=== PATIENT | female | born 1935 | race Caucasian/White ===

== ENCOUNTER 2016-06-28 07:46 | Day surgery (SDC) | payer MEDICARE ==
[~2016-06-28 07:46] MED LIST: LACTATED RINGERS 1,000 ML IV SCH; LIDOCAINE 1% 20 ML VIAL (10MG/ML) FOR IV START INTRADERMA PRN
[2016-06-28 08:46] VITALS: TEMP 97.6
[2016-06-28] MEDS ORDERED: LIDOCAINE 1% INJ 10MG/ML (20 ML MDV) ONE (09:17)
[2016-06-28] MEDS ORDERED: PROPOFOL 10 MG/ML 20 ML VIAL IV ONE (09:17)
--- NOTE | 2016-06-28 09:44 | P.PCN ---
Date of Procedure: 06/28/16 Procedure(s) Performed: Brief history: Patient is a pleasant 81-year-old white female, scheduled for an elective upper endoscopy as well as colonoscopy as a part of evaluation of severe iron deficiency anemia. Recently she was noted to have a hemoglobin of 6.2 with iron indices consistent with iron deficiency anemia. She denies any GI symptoms. Procedure performed: Esophagogastroduodenoscopy with biopsy Colonoscopy with biopsy Preoperative diagnosis: Severe iron deficiency anemia Anesthesia: MAC Procedure: After informed consent was obtained from the patient was brought into the endoscopy unit and IV conscious sedation was administered by anesthesia under continuous monitoring. Initially upper endoscopy was done. The Olympus GF 160 video endoscope was inserted inserted into the mouth and esophagus intubated without any difficulty and was gradually advanced into the stomach and duodenum and carefully examined. The bulb and second part of the duodenum appeared normal. Biopsies were done from this area to rule out celiac disease. The scope was then withdrawn into the stomach adequately insufflated with air and upon careful examination the antrum and body, cardia and fundus appeared normal. The scope was then withdrawn into the esophagus. The GE junction was located at 40 cm to the incisors. It appeared regular with no erythema erosions or ulcerations. Rest of the esophagus appeared normal. Patient tolerated the procedure well. At this time the patient continued to remain sedation. Initial digital rectal examination was normal. Olympus CF 160 video colonoscope was then inserted into the rectum and gradually advanced to the cecum without any difficulty. Careful examination was performed as the scope was gradually being withdrawn. The prep was excellent. In the cecum there was an ulcerated 3-4 cm mass identified which was biopsied. The ascending colon, transverse colon, descending colon, sigmoid colon and rectum appeared normal. Retroflexion was performed in the rectum and grade 2 internal hemorrhoids were noted. The sigmoid diverticulosis seen. Patient tolerated the procedure well. Impression: 1. Upper endoscopy was essentially within normal limits with no evidence of peptic ulcer disease or esophagitis or angiodysplasia 2. Colonoscopy revealed ulcerated mass involving the cecum and scattered sigmoid diverticulosis. Recommendations: Findings of this examination were discussed with the patient as well as her family. She was up to follow with the biopsy results. At this time she will be scheduled for CT of the abdomen and pelvis and obtain surgical consultation.
[2016-06-28 09:49] VITALS: RESP 16
[2016-06-28 10:23] VITALS: BP 137/72; PULSE 66
--- NOTE | 2016-07-03 09:12 | CDI ---
Pt Name: Jovita Johns CONFIDENTIAL MR#: [id number] Adm Date: 06/28/2016 7:46:00 AM Printed:07/03/2016 Physician Documentation Request Page 1 of 1 ICD-10-CM Ready Physicians Documentation Request Patient: Jovita Johns EPI: [id number] Account: [id number] Payer: MEDICARE HMO Facility: [facility] Location: - Admit Date: 06/28/2016 7:46:00 AM Query Send By: Jane Coleman Phone #: Ext. Communication Date: 07/03/2016 9:07:00 AM Clarification Outpatient By submitting this query, we are merely seeking further clarification of documentation to accurately reflect all conditions that you are monitoring, evaluating, treating or that extend the hospitalization or utilize additional resources of care. Please utilize your independent clinical judgment when addressing the question(s) below. Dear Doctor Dori Muñoz, The patients Clinical Indicators include: see below Documentation Clarification OP In order to properly code and bill, clarification is needed regarding a sedation conflict on this account. Your Procedure note states "IV conscious sedation", yet the Anesthesia Record indicates GA/Unconscious Sedation. Which type of sedation was actually used? Please issue an addendum to your operative report. Thanks! PLEASE DOCUMENT ANY ADDITIONAL DIAGNOSES AND/OR SPECIFICITY IN THE PROGRESS NOTES AND/OR DISCHARGE SUMMARY. Agreed & documented Unable to determine/unknown Disagree with the above request Need to discuss MTDD
--- NOTE | 2016-07-07 12:07 | PCN ---
ADDENDUM TO PROCEDURE NOTE: General anesthesia utilized instead of IV conscious sedation.
== END 2016-06-28 10:44 | disposition home or self-care (01) ==
LOC: ORWHC2ENDO 07:46
PROVIDERS: ATTEND Internal Medicine Gastroenterology
DX: C18.0 Malignant neoplasm of cecum (principal); K57.30 Diverticulosis of large intestine without perforation or abscess without bleeding; K64.1 Second degree hemorrhoids; D50.9 Iron deficiency anemia, unspecified; I10 Essential (primary) hypertension; Z79.82 Long term (current) use of aspirin; Z79.899 Other long term (current) drug therapy
CPT/HCPCS: 88305; 45380; 43239; J2001; J2704

== ENCOUNTER → 2016-06-30 | Outpatient (CLI) | payer MEDICARE ==
[2016-06-30 14:59] LABS: Blood Urea Nitrogen 15 mg/dL (7-17); Non-African American GFR(MDRD) >60 (>60 ml/min/1.73 sqM)
--- NOTE | 2016-06-30 16:20 | CT ---
EXAMINATION TYPE: CT abdomen pelvis w con DATE OF EXAM: 06/30/2016 4:02 PM COMPARISON: NONE HISTORY: recent diagnosis of colon cancer. History of breast cancer CT DLP: 837 mGycm Automated exposure control for dose reduction was used. TECHNIQUE: Helical acquisition of images was performed from the lung bases through the pelvis. CONTRAST: Performed with Oral Contrast and with IV Contrast, patient injected with 100 mL of Omnipaque 300. FINDINGS: LUNG BASES: Patient shows postmastectomy change. There is a granuloma present in the left lower lobe, calcified nodules are subcentimeter in size in the left lower lobe, parenchymal bands are present wi thin the lung bases. LIVER/GB: There is a large mass in the posterior right lobe of the liver measuring approximately 9.4 cm x 9.7 cm x 6.5 cm in size. Smaller hypodense mass is present more medially and inferiorly measurin g 3.3 cm in greatest dimension. The mass more anteriorly in the right lobe measures approximately 4.5 cm in greatest dimension, these masses show nodular tyler with central low attenuation. PANCREAS: No significant abnormality is seen. SPLEEN: No significant abnormality is seen. ADRENALS: No significant abnormality is seen. KIDNEYS: Cortical cyst associated with the midpole of the left kidney was sterilely measures 4 cm. Co rtical cyst in the central portion of the right kidney upper aspect measures 19 mm. Duplicated collec ting system present on the right. RETROPERITONEAL ADENOPATHY: None visualized REPRODUCTIVE ORGANS: Not seen URINARY BLADDER: No significant abnormality is seen. PELVIC ADENOPATHY: Right inguinal adenopathy is suspected OSSEOUS STRUCTURES: No significant abnormality is seen. BOWEL: Abnormal soft tissue is associated with the cecum which may be related to patient's known car cinoma, the mass is irregularly shaped and measures approximately 4.2 cm in greatest dimension. OTHER: Aorta shows normal caliber. Soft tissue at the pelvic outlet is indeterminate, consider pelvic physical examination. IMPRESSION: FINDINGS COMPATIBLE WITH PATIENT'S HISTORY OF COLON CARCINOMA WITH PROBABLE METASTATIC CHANGE TO THE LIVER, POSSIBLE RIGHT INGUINAL REGION. Additional findings above.
== END | disposition home or self-care (01) ==
LOC: RADCTMAIN 13:47
PROVIDERS: ATTEND Internal Medicine Gastroenterology
DX: C18.9 Malignant neoplasm of colon, unspecified (principal)
CPT/HCPCS: 82565; 84520; 74177; 36415; Q9967

== ENCOUNTER 2016-07-11 07:28 | Day surgery (SDC) | payer MEDICARE ==
[2016-07-11 08:59] VITALS: RESP 14; TEMP 98
[2016-07-11 09:04] LABS: INR 1.2 (<1.1); Prothrombin Time 11.6 sec (9.0-12.0)
[2016-07-11 09:07] LABS: Anisocytosis Marked; Basophils # (A) 0.1 k/uL (0-0.2); Basophils % (A) 1 %; CH 24.8; CHCM 27.8; Eosinophils # (A) 0.2 k/uL (0-0.7); Eosinophils % (A) 4 %; HCT 33.7 % (34.0-46.0); HDW 4.11; HGB 9.8 gm/dL (11.4-16.0); Hypochromasia Marked; Luc # (Auto) 0.14; Luc % (Auto) 2; Lymphocytes # (A) 0.7 k/uL (1.0-4.8); Lymphocytes % (A) 11 %; MCH 25.5 pg (25.0-35.0); MCHC 29.1 g/dL (31.0-37.0); MCV 87.6 fL (80.0-100.0); Macrocytosis Slight; Mean Platelet Volume 6.8; Microcytosis Slight; Monocytes # (A) 0.7 k/uL (0-1.0); Monocytes % (A) 11 %; Neutrophils # (A) 4.6 k/uL (1.3-7.7); Neutrophils % (A) 72 %; Poikilocytosis Moderate; RBC 3.85 m/uL (3.80-5.40); WBC 6.4 k/uL (3.8-10.6); WBC (Perox) 6.24
[2016-07-11 09:08] LABS: RDW 26.8 % (11.5-15.5)
[2016-07-11 09:54] VITALS: PULSE 76
--- NOTE | 2016-07-11 10:21 | US ---
EXAMINATION TYPE: US biopsy liver DATE OF EXAM: 07/11/2016 10:08 AM HISTORY: Liver masses, mass. FINDINGS: Maximal barrier technique was utilized. The skin overlying a suitable path to the patient' s mass was localized with ultrasound and the overlying skin prepped and draped. Ultrasound was utili zed with sterile technique. Lidocaine was used for local anesthesia. A skin reza was made with a sc alpel. An 18-gauge needle was advanced under direct ultrasound guidance and core specimen obtained o f the mass within the right lobe of the liver. Specimen submitted in formalin to Pathology. Followi ng the procedure, hemostasis achieved and the patient is discharged in stable condition without compl ication. Impression: status POST ULTRASOUND GUIDED CORE BIOPSY OF liver MASS, PATHOLOGY IS PENDING. THIS PROC EDURE IS PERFORMED BY THE UNDERSIGNED.
[2016-07-11 13:30] VITALS: BP 145/62
== END 2016-07-11 14:00 | disposition home or self-care (01) ==
LOC: RADPROMAIN 07:28
PROVIDERS: ATTEND Internal Medicine Hematology & Oncology
DX: C22.7 Other specified carcinomas of liver (principal); C18.9 Malignant neoplasm of colon, unspecified; C50.919 Malignant neoplasm of unspecified site of unspecified female breast
CPT/HCPCS: 47000; 76942; 85025; 85610; 88307; 88341; 88342

== ENCOUNTER → 2016-08-11 | Outpatient (CLI) | payer MEDICARE ==
--- NOTE | 2016-08-11 11:25 | US ---
EXAMINATION TYPE: US venous doppler duplex LE DATE OF EXAM: 08/11/2016 11:07 AM COMPARISON: NONE CLINICAL HISTORY: Pain M79.662 And Swelling R22.42. SIDE PERFORMED: bilateral TECHNIQUE: The lower extremity deep venous system is examined utilizing real time linear array sonog khloe with graded compression, doppler sonography and color-flow sonography. VESSELS IMAGED: External Iliac Vein (EIV) Common Femoral Vein Deep Femoral Vein Greater Saphenous Vein * Femoral Vein Popliteal Vein Small Saphenous Vein * Proximal Calf Veins (* superficial vessels) Right Leg: Negative for DVT Left Leg: Negative for DVT Grayscale, color doppler, spectral doppler imaging performed of the deep veins of the lower extremiti es. There is normal flow, compressibility, vascular waveforms bilaterally. IMPRESSION: No ultrasound evidence for acute DVT in either lower extremity.
== END | disposition home or self-care (01) ==
LOC: RADUSWWP 10:22
PROVIDERS: ATTEND Internal Medicine Hematology & Oncology
DX: M79.661 Pain in right lower leg (principal); M79.662 Pain in left lower leg; R22.43 Localized swelling, mass and lump, lower limb, bilateral
CPT/HCPCS: 93970

== ENCOUNTER 2016-10-13 14:42 | Emergency (ER) | payer MEDICARE ==
--- NOTE | 2016-10-13 15:22 | ED ---
General Adult HPI - General Chief complaint: Allergic Reaction Stated complaint: Chemo Reaction Time Seen by Provider: 10/13/16 15:00 Source: patient, RN notes reviewed Mode of arrival: wheelchair Limitations: no limitations - History of Present Illness Initial comments: This is an 81-year-old female has a history of colon cancer. Patient has been getting chemotherapy and she went to the chemotherapy at 2:00 today feeling fine however at the end of the chemotherapy administration she started having some slurred speech per the daughter and then her fine motor skills with both hands appeared to be slightly off and she was unable to grasp the blanket pulled up to her neck and she is unable to grab a glass of water. Patient seems to think it was occurring with both hands. Patient also took a sip of water and was choking on it. Patient states she feels drugged currently. Patient denies headache patient denies any lightheadedness dizziness or near syncopal episode. Patient denies any chest pain palpitations difficulty breathing or shortness of breath. Patient denies any abdominal pain patient denies nausea vomiting diarrhea. Patient states she's had this chemotherapy drug in the past and has had no similar reaction. Patient states she did take Lomotil this morning because she had diarrhea and has had diarrhea recently when she has been taking chemo. - Related Data Home Medications Medication Instructions Recorded Confirmed Aspirin 81 mg PO HS 06/23/16 10/13/16 Metoprolol Succinate (ER) [Toprol 25 mg PO DAILY 06/23/16 10/13/16 XL] amLODIPine [Norvasc] 5 mg PO DAILY 06/23/16 10/13/16 Multivitamins, Thera [Multivitamin 1 tab PO DAILY 07/06/16 10/13/16 (formulary)] Diphenox-Atrop 2.5-0.025 mg 1 tab PO Q4H PRN 10/13/16 10/13/16 [Lomotil] Allergies Allergy/AdvReac Type Severity Reaction Status Date / Time No Known Allergies Allergy Verified 10/13/16 15:08 Review of Systems ROS Statement: Those systems with pertinent positive or pertinent negative responses have been documented in the HPI. ROS Other: All systems not noted in ROS Statement are negative. Past Medical History Past Medical History: Blood Disorder, Cancer, Hypertension Additional Past Medical History / Comment(s): LT BREAST; Blood disorde, Anemia History of Any Multi-Drug Resistant Organisms: None Reported Past Surgical History: Hysterectomy Additional Past Surgical History / Comment(s): LT MASTECTOMY, colonoscopy, Past Anesthesia/Blood Transfusion Reactions: No Reported Reaction Additional Past Anesthesia/Blood Transfusion Reaction / Comment(s): blood transfusion 06/30 Past Psychological History: No Psychological Hx Reported Smoking Status: Never smoker Past Alcohol Use History: None Reported Past Drug Use History: None Reported - Past Family History Father Family Medical History: Blood Disorder General Exam - General Exam Comments Initial Comments: GENERAL: Patient is well-developed and well-nourished. Patient is nontoxic and well- hydrated and is in mild distress. ENT: Neck is soft and supple. No significant lymphadenopathy is noted. Oropharynx is clear. Moist mucous membranes. Neck has full range of motion without eliciting any pain. . EYES: The sclera were anicteric and conjunctiva were pink and moist. Extraocular movements were intact and pupils were equal round and reactive to light. Eyelids were unremarkable. PULMONARY: Unlabored respirations. Good breath sounds bilaterally. No audible rales rhonchi or wheezing was noted. CARDIOVASCULAR: There is a regular rate and rhythm without any murmurs gallops or rubs. ABDOMEN: Soft and nontender with normal bowel sounds. No palpable organomegaly was noted. There is no palpable pulsatile mass. SKIN: Skin is clear with no lesions or rashes and otherwise unremarkable. NEUROLOGIC: Patient is alert and oriented x3. Cranial nerves II through XII are grossly intact. Currently patient speech seems normal. Patient's fine motor movement with both hands seems to be slightly off. She is unable to grasp her glasses accurately with either hand. MUSCULOSKELETAL: Normal extremities with adequate strength and full range of motion. No lower extremity swelling or edema. No calf tenderness. LYMPHATICS: No significant lymphadenopathy is noted PSYCHIATRIC: Normal psychiatric evaluation. Normal interpersonal interactions appears functionally intact in deals appropriately with others. No signs of depression. No signs of anxiety. Limitations: no limitations Course Vital Signs 10/13/16 10/13/16 10/13/16 14:46 15:00 15:15 Temperature 97.5 F L 98.0 F 98.2 F Pulse Rate 102 H 88 90 Respiratory 20 18 18 Rate Blood Pressure 153/68 123/60 126/58 O2 Sat by Pulse 99 96 97 Oximetry 10/13/16 10/13/16 10/13/16 15:30 15:45 16:00 Temperature 98.5 F 98.5 F 98.6 F Pulse Rate 85 92 108 H Respiratory 18 18 18 Rate Blood Pressure 122/56 157/71 152/71 O2 Sat by Pulse 95 95 95 Oximetry 10/13/16 10/13/16 10/13/16 16:15 16:30 16:55 Temperature 98.7 F 98.2 F 98.2 F Pulse Rate 95 92 97 Respiratory 18 18 18 Rate Blood Pressure 116/52 146/64 127/61 O2 Sat by Pulse 97 95 96 Oximetry 10/13/16 10/13/16 18:00 18:32 Temperature 98.4 F Pulse Rate 86 80 Respiratory 18 16 Rate Blood Pressure 150/65 127/59 O2 Sat by Pulse 97 97 Oximetry Medical Decision Making - Medical Decision Making EKG shows normal sinus rhythm at 90 bpm TN interval 176 dresses under 10 Q-T intervals 46 QTC is 496. Patient's EKG is compared to an old EKG no significant changes are noted. Patient was hypokalemic psychiatric the patient 40 mEq of Nel Dur and 10 mg of KCl IV. I went and reexamined the patient her symptoms have resolved and she was asking to go home. - Lab Data Result diagrams: 10/13/16 15:08 10/13/16 15:08 Lab Results 10/13/16 10/13/16 10/13/16 Range/Units 15:08 15:08 15:08 WBC 5.2 (3.8-10.6) k/uL RBC 3.28 L (3.80-5.40) m/uL Hgb 11.5 (11.4-16.0) gm/dL Hct 34.0 (34.0-46.0) % MCV 103.6 H (80.0-100.0) fL MCH 35.0 (25.0-35.0) pg MCHC 33.8 (31.0-37.0) g/dL RDW 19.5 H (11.5-15.5) % Plt Count 397 (150-450) k/uL Neutrophils % 93 % Lymphocytes % 5 % Monocytes % 1 % Eosinophils % 0 % Basophils % 0 % Neutrophils # 4.9 (1.3-7.7) k/uL Lymphocytes # 0.3 L (1.0-4.8) k/uL Monocytes # 0.0 (0-1.0) k/uL Eosinophils # 0.0 (0-0.7) k/uL Basophils # 0.0 (0-0.2) k/uL Anisocytosis Slight Macrocytosis Moderate PT (9.0-12.0) sec INR (<1.1) APTT (22.0-30.0) sec Sodium 143 (137-145) mmol/L Potassium 2.5 L* (3.5-5.1) mmol/L Chloride 104 (98-107) mmol/L Carbon Dioxide 26 (22-30) mmol/L Anion Gap 13 mmol/L BUN 17 (7-17) mg/dL Creatinine 0.42 L (0.52-1.04) mg/dL Est GFR (MDRD) Af Amer >60 (>60 ml/min/1.73 sqM) Est GFR (MDRD) Non-Af >60 (>60 ml/min/1.73 sqM) Glucose 149 H (74-99) mg/dL Calcium 8.1 L (8.4-10.2) mg/dL Total Bilirubin 1.1 (0.2-1.3) mg/dL AST 49 H (14-36) U/L ALT 54 H (9-52) U/L Alkaline Phosphatase 251 H (38-126) U/L Total Creatine Kinase 97 (30-135) U/L CK-MB (CK-2) 1.2 (0.0-2.4) ng/mL CK-MB (CK-2) Rel Index 1.2 Troponin I 0.033 (0.000-0.034) ng/mL Total Protein 6.6 (6.3-8.2) g/dL Albumin 3.2 L (3.5-5.0) g/dL Urine Color Urine Appearance (Clear) Urine pH (5.0-8.0) Ur Specific [place] (1.001-1.035) Urine Protein (Negative) Urine Glucose (UA) (Negative) Urine Ketones (Negative) Urine Blood (Negative) Urine Nitrite (Negative) Urine Bilirubin (Negative) Urine Urobilinogen (<2.0) mg/dL Ur Leukocyte Esterase (Negative) Urine WBC (0-5) /hpf 10/13/16 10/13/16 Range/Units 15:08 16:30 WBC (3.8-10.6) k/uL RBC (3.80-5.40) m/uL Hgb (11.4-16.0) gm/dL Hct (34.0-46.0) % MCV (80.0-100.0) fL MCH (25.0-35.0) pg MCHC (31.0-37.0) g/dL RDW (11.5-15.5) % Plt Count (150-450) k/uL Neutrophils % % Lymphocytes % % Monocytes % % Eosinophils % % Basophils % % Neutrophils # (1.3-7.7) k/uL Lymphocytes # (1.0-4.8) k/uL Monocytes # (0-1.0) k/uL Eosinophils # (0-0.7) k/uL Basophils # (0-0.2) k/uL Anisocytosis Macrocytosis PT 13.4 H (9.0-12.0) sec INR 1.4 (<1.1) APTT 24.7 (22.0-30.0) sec Sodium (137-145) mmol/L Potassium (3.5-5.1) mmol/L Chloride (98-107) mmol/L Carbon Dioxide (22-30) mmol/L Anion Gap mmol/L BUN (7-17) mg/dL Creatinine (0.52-1.04) mg/dL Est GFR (MDRD) Af Amer (>60 ml/min/1.73 sqM) Est GFR (MDRD) Non-Af (>60 ml/min/1.73 sqM) Glucose (74-99) mg/dL Calcium (8.4-10.2) mg/dL Total Bilirubin (0.2-1.3) mg/dL AST (14-36) U/L ALT (9-52) U/L Alkaline Phosphatase (38-126) U/L Total Creatine Kinase (30-135) U/L CK-MB (CK-2) (0.0-2.4) ng/mL CK-MB (CK-2) Rel Index Troponin I (0.000-0.034) ng/mL Total Protein (6.3-8.2) g/dL Albumin (3.5-5.0) g/dL Urine Color Colorless Urine Appearance Clear (Clear) Urine pH 5.5 (5.0-8.0) Ur Specific [place] 1.003 (1.001-1.035) Urine Protein Negative (Negative) Urine Glucose (UA) Negative (Negative) Urine Ketones Negative (Negative) Urine Blood Trace H (Negative) Urine Nitrite Negative (Negative) Urine Bilirubin Negative (Negative) Urine Urobilinogen <2.0 (<2.0) mg/dL Ur Leukocyte Esterase Negative (Negative) Urine WBC <1 (0-5) /hpf Disposition Clinical Impression: Adverse reaction to drug, Hypokalemia Disposition: HOME SELF-CARE Condition: Good Instructions: Adverse Drug Reaction (ED), Hypokalemia (ED) Referrals: None,Stated [REFERRING] - 1-2 days Time of Disposition: 18:39
[2016-10-13 15:41] LABS: Anisocytosis Slight; Basophils % (A) 0 %; CH 35.2; CHCM 34.1; Eosinophils % (A) 0 %; HDW 2.97; HGB 11.5 gm/dL (11.4-16.0); Luc # (Auto) 0.05; Luc % (Auto) 1; Lymphocytes # (A) 0.3 k/uL (1.0-4.8); Lymphocytes % (A) 5 %; MCHC 33.8 g/dL (31.0-37.0); MCV 103.6 fL (80.0-100.0); Macrocytosis Moderate; Mean Platelet Volume 7.3; Monocytes % (A) 1 %; Neutrophils # (A) 4.9 k/uL (1.3-7.7); Neutrophils % (A) 93 %; RBC 3.28 m/uL (3.80-5.40); RDW 19.5 % (11.5-15.5); WBC 5.2 k/uL (3.8-10.6); WBC (Perox) 5.23
--- NOTE | 2016-10-13 15:48 | CT ---
EXAMINATION TYPE: CT brain wo con for TPA DATE OF EXAM: 10/13/2016 COMPARISON: NONE INDICATION: Coldness to right arm after chemo treatment today. Hx of colon CA. DLP: 1052 mGycm, Automated exposure control for dose reduction was used. CONTRAST: None CT of the brain is performed utilizing 3 mm thick sections through the posterior fossa and 3 mm thick sections through the remaining calvarium. Study is performed within 24 hours of arrival to the hosp ital. No abnormal hyperdensity is present to suggest an acute intracranial hemorrhage. No mass lesion is evident. No acute infarcts are evident. Ventricles and sulci are mildly prominent for the patient age. Paranasal sinuses and mastoid air cells within the [id number] are clear. IMPRESSIONS: 1. Mild age-related atrophy. 2. No acute intracranial process.
[2016-10-13 15:50] LABS: INR 1.4 (<1.1); Partial Thromboplastin Time 24.7 sec (22.0-30.0); Prothrombin Time 13.4 sec (9.0-12.0)
--- NOTE | 2016-10-13 15:54 | XR ---
EXAMINATION TYPE: XR chest 2V DATE OF EXAM: 10/13/2016 COMPARISON: NONE HISTORY: Shortness of breath TECHNIQUE: Frontal and lateral views of the chest are obtained. FINDINGS: Scattered senescent parenchymal changes noted. Hyperinflation compatible with COPD. No evidence for infiltrate. No evidence for atelectasis. Heart size is stable. Mediastinal structures are stable and grossly unremarkable. No evidence for hilar prominence. Degenerative changes dorsal spine. IMPRESSION: 1. No evidence for acute pulmonary disease.
[2016-10-13 15:57] LABS: ALT 54 U/L (9-52); AST 49 U/L (14-36); Alkaline Phosphatase 251 U/L (38-126); Anion Gap 13 mmol/L; Blood Urea Nitrogen 17 mg/dL (7-17); Calcium 8.1 mg/dL (8.4-10.2); Carbon Dioxide 26 mmol/L (22-30); Chloride 104 mmol/L (98-107); Glucose 149 mg/dL (74-99); Non-African American GFR(MDRD) >60 (>60 ml/min/1.73 sqM); Sodium 143 mmol/L (137-145); Total Bilirubin 1.1 mg/dL (0.2-1.3); Total Protein 6.6 g/dL (6.3-8.2)
[2016-10-13 15:59] LABS: Potassium 2.5 mmol/L (3.5-5.1)
[2016-10-13] MEDS ORDERED: POTASSIUM CHLORIDE ER 20 MEQ TAB.ER PO STA (16:07)
[2016-10-13 16:17] LABS: Creatine Kinase MB 1.2 ng/mL (0.0-2.4); Troponin I 0.033 ng/mL (0.000-0.034)
[2016-10-13 16:52] LABS: Appearance,Urine Clear (Clear); Bilirubin,Urine Negative (Negative); Glucose,Urine (UA) Negative (Negative); Ketones,Urine Negative (Negative); Leukocyte Esterase,Urine Negative (Negative); Nitrite,Urine Negative (Negative); PH, Urine 5.5 (5.0-8.0); Particle Count 341; Protein,Urine Negative (Negative); Specific Gravity,Urine 1.003 (1.001-1.035); UA Billing (MACRO vs. MICRO) MICRO; Urobilinogen,Urine <2.0 mg/dL (<2.0); WBC,Urine <1 /hpf (0-5)
[2016-10-13] MEDS ORDERED: POTASSIUM CHLORIDE 10 MEQ, LIDOCAINE 2% INJ 10 MG in SODIUM CHLORIDE 0.9% 100 ML IVPB SCH (17:00)
[2016-10-13 18:06] VITALS: TEMP 98.4
[2016-10-13 18:33] VITALS: BP 127/59; PULSE 80; RESP 16
== END 2016-10-13 18:52 | disposition home or self-care (01) ==
LOC: EC 14:42
DX: R47.81 Slurred speech (principal); R19.7 Diarrhea, unspecified; T45.1X5A Adverse effect of antineoplastic and immunosuppressive drugs, initial encounter; E87.6 Hypokalemia; I10 Essential (primary) hypertension; Z79.82 Long term (current) use of aspirin; Z79.899 Other long term (current) drug therapy; Z85.038 Personal history of other malignant neoplasm of large intestine; Z90.710 Acquired absence of both cervix and uterus; Z90.12 Acquired absence of left breast and nipple
CPT/HCPCS: 36415; 93005; 80053; 82550; 82553; 84484; 85025; 85610; 85730; 81001; 71020; 70450; 99284; 96365; J2001; J3480

== ENCOUNTER → 2016-11-15 | Outpatient (CLI) | payer MEDICARE ==
[2016-11-15 11:52] LABS: Blood Urea Nitrogen 25 mg/dL (7-17); Non-African American GFR(MDRD) >60 (>60 ml/min/1.73 sqM)
--- NOTE | 2016-11-15 13:41 | CT ---
EXAMINATION TYPE: CT ChestAbdPelvis w con DATE OF EXAM: 11/15/2016 COMPARISON: 06/30/2016 HISTORY: 81-year-old female follow up to colon CA TECHNIQUE: Contiguous axial scanning of the chest, abdomen, and pelvis performed with IV Contrast, pa tient injected with 100 mL of Omnipaque 300. Delayed images through the kidneys were obtained. Siegel l/sagittal reconstructions performed. CT DLP: 979 mGycm Automated exposure control for dose reduction was used. FINDINGS: CHEST: Tiny subcentimeter hypodense nodularity within the thyroid gland. Heart is normal size without pericardial effusion. Mild coronary vessel calcifications are present in remarkable for coronary artery disease. Moderate atherosclerotic calcifications throughout the thoracic aorta without aneurysm. There is conv entional origin vessel branching anatomy. Surgical clips seen within the left axilla with prior left mastectomy. No thoracic lymphadenopathy by CT size criteria. A few scattered calcified granulomas are present. Biapical pleural-parenchymal scarring. Tiny 3 mm left upper lobe pulmonary nodule axial image 21 A 1.9 cm masslike area of consolidation in the superior segment left lower lobe. 4 mm right middle lobe pulmonary nodule axial image 35. No consolidation or pleural effusion. ABDOMEN: Large lobulated hypervascular masses within the right liver lobe should be greater degree of central hypoattenuation, largest measuring 8.4 cm versus 9.6 cm, suggesting some posttreatment change. Portal vein is patent. No biliary ductal dilatation. Limitation in assessment of the abdomen due to patient breathing motion artifact. The gallbladder, adrenal glands, spleen, and atrophic pancreas show no gross abnormality. Scattered cysts within both kidneys, largest measuring 4.2 cm on the left and 1.9 cm on the right. No dilated small bowel, free fluid, or free air. Moderate atherosclerotic calcifications within the a bdominal aorta and iliac arteries. Oral contrast has not progressed to the colon. There is moderate stool within the right hemicolon. Pr eviously described cecal abnormality is not well delineated due to these limitations. Mild circumfere ntial wall thickening of the mid to distal sigmoid and rectum to be due to underdistention. No mesenteric or retroperitoneal lymphadenopathy seen. Slight diffuse anasarca type change with straining edema in the subcutaneous fat and intra-abdominal fat. Pelvis: Bladder distended. Uterus not visualized, likely surgically absent. No abnormal fluid collection in t he pelvis. Mild circumferential rectal wall thickening possibly nondistention. Redemonstrated dilated tubular structures within the right inguinal region suspected to be on a vascular basis with venous ectasia. Bones: Degenerative changes within the lumbar spine. No osseous destructive process. IMPRESSION: 1. PREVIOUSLY DESCRIBED CECAL ABNORMALITY IS NOT WELL DEPICTED CONTRAST HAS NOT MADE ITS WAY TO TH E COLON AND THERE IS MODERATE STOOL ON THE RIGHT SIDE. 2. LARGE HYPOVASCULAR RIGHT LIVER LOBE MASSES. THESE ARE NOW LOWER DENSITY AND SLIGHTLY SMALLER WITH THE LARGEST MEASURING 8.4 CM VERSUS 9.6 CM, PREVIOUSLY. FINDINGS SUGGEST PARTIAL TREATMENT RESPONSE. 3. APPROXIMATELY 3 PULMONARY NODULES, LARGEST MEASURING 1.9 CM. GIVEN THE PRESENCE OF PRIOR GRANULOMA TOUS DISEASE, THESE ARE NONSPECIFIC. FOLLOW-UP RECOMMENDED METASTATIC DISEASE IS NOT EXCLUDED AT T HIS TIME. 4. MILD CIRCUMFERENTIAL WALL THICKENING OF THE SIGMOID COLON AND RECTUM COULD RELATE TO UNDERDISTENTI ON OR MILD COLITIS. CLINICALLY CORRELATE.
== END | disposition home or self-care (01) ==
LOC: RADCTMAIN 11:12
PROVIDERS: ATTEND Internal Medicine Hematology & Oncology
DX: C18.0 Malignant neoplasm of cecum (principal); R16.0 Hepatomegaly, not elsewhere classified; R91.8 Other nonspecific abnormal finding of lung field; K63.89 Other specified diseases of intestine; K62.89 Other specified diseases of anus and rectum
CPT/HCPCS: 82565; 84520; 71260; 74177; 36415; Q9967

== ENCOUNTER → 2017-02-23 | Outpatient (CLI) | payer MEDICARE ==
[2017-02-23 10:03] LABS: Blood Urea Nitrogen 24 mg/dL (7-17); Non-African American GFR(MDRD) >60 (>60 ml/min/1.73 sqM)
--- NOTE | 2017-02-23 11:38 | CT ---
EXAMINATION TYPE: CT ChestAbdPelvis w con DATE OF EXAM: 02/23/2017 COMPARISON: 11/15/2016 HISTORY: Colon and Breast CA CT DLP: 386.7 mGycm. Automated Exposure Control for Dose Reduction was Utilized. CONTRAST: CT scan of the thorax, abdomen and pelvis is performed with IV Contrast, patient injected with 100 mL of Omnipaque 300. FINDINGS: LUNGS: There is unchanged size and morphology of the superior segment left lower lobe 1.9 cm masslike consolidation with the subsegmental bronchus through this mass. 3 mm left upper lobe pulmonary nodul e is also unchanged from the prior. 2 mm right upper lobe pulmonary nodule is also stable on series 4 image 22. The 4 mm right middle lobe pulmonary nodule seen on the prior exam is also stable. Again a few subcentimeter scattered calcified benign granulomas are seen as well as biapical pleural-parench ymal scarring. MEDIASTINUM: There are no greater than 1 cm hilar or mediastinal lymph nodes. Prominent right hilar l ymph node measures 8 mm in short axis. No pericardial effusion is seen. OTHER: Unchanged heterogeneity of the thyroid gland enhancement without greater than 1 cm nodule. Lef t mastectomy and axillary node dissection surgical clips on the left are present. LIVER/GB: Although the largest hepatic lesion measures similar to the prior exam with measurement of 8.1 x 5.8 cm and previously measuring 8.4 cm involving segment 7 and 8, there are multiple new hepati c metastatic masses in comparison to the prior exam and increase in size of the mass in segment 6 pre viously measuring approximately 2.9 cm and now measuring 6.0 x 5.8 cm. New masses within segment IVb and segment 3 measuring up to 1.8 cm. Gallbladder is unremarkable. PANCREAS: No significant abnormality is seen. SPLEEN: No significant abnormality is seen. ADRENALS: No significant abnormality is seen. KIDNEYS: Simple appearing bilateral renal cysts are similar to the prior measuring up to 4.2 cm in th e left superior pole emanating posteriorly. BOWEL: No obstruction or bowel wall thickening. Stool throughout the colon limits evaluation for mass es. Rectal wall thickening is likely due to incomplete distention. GENITAL ORGANS: Uterus is either severely atrophied or surgically absent. LYMPH NODES: No greater than 1cm abdominal or pelvic lymph nodes are appreciated. OSSEOUS STRUCTURES: Multilevel degenerative disc disease is seen of the cervicothoracic and thoracolu mbar spine. No suspicious osseous lesions. OTHER: Tubular structures appearing contiguous with the femoral veins again are favored to represent venous varicosities rather than lymphadenopathy. Body wall edema is resolved in the interim. IMPRESSION: 1. Progression of metastatic disease within the liver with enlargement of the metastatic lesions and few new metastatic lesions. 2. Stable 1.9 cm and 3 mm pulmonary nodules with the larger favored to represent metastatic disease a lthough granulomatous disease is possible. 3. Mild circumferential wall thickening of the rectum is again present and thought to relate to incom plete distention 4. No adenopathy within the chest, abdomen, or pelvis. 5. Resolution of the previously seen body wall edema..
== END | disposition home or self-care (01) ==
LOC: RADCTMAIN 09:11
PROVIDERS: ATTEND Internal Medicine Hematology & Oncology
DX: C78.7 Secondary malignant neoplasm of liver and intrahepatic bile duct (principal); C18.0 Malignant neoplasm of cecum; R91.8 Other nonspecific abnormal finding of lung field; K62.89 Other specified diseases of anus and rectum
CPT/HCPCS: 82565; 84520; 71260; 74177; 36415; Q9967

== ENCOUNTER → 2017-05-15 | Outpatient (CLI) | payer MEDICARE ==
[2017-05-15 11:10] LABS: Blood Urea Nitrogen 21 mg/dL (7-17)
--- NOTE | 2017-05-15 13:24 | CT ---
EXAMINATION TYPE: CT ChestAbdPelvis w con DATE OF EXAM: 05/15/2017 COMPARISON: 02/23/2017 and 11/15/2016 HISTORY: Colon CA and breast cancer CT DLP: 896 mGycm. Automated Exposure Control for Dose Reduction was Utilized. CONTRAST: CT scan of the thorax, abdomen and pelvis is performed with IV Contrast, patient injected with 100 mL of Omnipaque 300. FINDINGS: LUNGS: There is again similar size and morphology of the approximately 1.9 cm superior segment left l ower lobe masslike consolidation encasing a segmental bronchus to the superior left upper lobe in com parison to exam of 02/23/2017. This previously measured 1.9 cm on the exam of 02/23/2017 and 11/15/2016 . There is also unchanged appearance of a 3 mm left upper lobe pulmonary nodule on series 4 image 22. Calcified left lower lobe granulomas are benign. Linear left basilar pleural parenchymal scarring is present. The previously seen 2 mm pulmonary right upper lobe pulmonary nodule stable on series 4 image 21. A n ew 4 mm pulmonary nodule seen within the superior segment of the right lower lobe on series 4 image 2 4. 4 mm right middle lobe pulmonary nodule on series 4 image 32 is unchanged from the prior. MEDIASTINUM: There are no greater than 1 cm hilar or mediastinal lymph nodes. The largest mediastinal nodes measure 8 mm within the right danilo and precarinal space. These are unchanged from the prior. No pericardial effusion is seen. OTHER: Left axillary surgical clips and lymph node dissection are noted. There is unchanged heterogen eity of the thyroid gland without greater than 1 cm pulmonary nodule. Left mastectomy has been perfor med. LIVER/GB: There is overall slight progression of disease within the hepatic lesions with the largest remaining stable measuring 8.1 x 5.7 cm as opposed to the prior 8.1 x 5.8 cm within segment 7 and 8 o f the liver, however the second largest occupying segments 5 and 6 demonstrates interval growth measu ring approximately 7.3 x 6.9 cm as opposed to 6.0 x 5.8 cm on the prior of 01/24/2017. There is also interval growth of the left hepatic lobe lesion previously measuring 1.8 cm and currently measuring 2 .9 cm. No new masses are seen. PANCREAS: No significant abnormality is seen. SPLEEN: No significant abnormality is seen. ADRENALS: No significant abnormality is seen. KIDNEYS: Bilateral cortical renal cysts are similar from the prior with enlargement of the right kidn ey in comparison to the left. The largest renal cyst measures 4.2 cm from the superior pole of the le ft kidney emanating posteriorly. BOWEL: Moderate amount of retained colonic stool is again noted. No evidence of bowel obstruction. Ag ain there is circumferential rectal wall thickening possibly related to incomplete distention. GENITAL ORGANS: Uterus is surgically absent or significantly atrophy. LYMPH NODES: No greater than 1cm abdominal or pelvic lymph nodes are appreciated. OSSEOUS STRUCTURES: Multilevel degenerative disc disease of the spine are moderate. No new suspicious osseous lesions. There is a mild S-shaped scoliotic curvature of the thoracolumbar spine and mild de generative changes of the femoral acetabular joints. OTHER: Bilateral superficial inguinal tubular varicosities are again seen contiguous with the femoral veins. IMPRESSION: 1. Progression of disease within the liver. Increased size of multiple hepatic metastatic lesions wit h the largest change of a lesion occupying segments 5 and 6 currently measuring 7.3 x 6.9 cm and prev iously measuring 6.0 x 5.8 cm on the prior of 01/24/2017. No new hepatic lesions. 2. Solitary new right lower lobe subcentimeter pulmonary nodule. Remainder of the pulmonary nodules a nd masslike consolidation of the left lower lobe are stable from the prior exams dating back to 017. 3. No evidence of adenopathy within the chest, abdomen, or pelvis. 4. No new suspicious osseous lesions.
== END | disposition home or self-care (01) ==
LOC: RADCTMAIN 10:13
PROVIDERS: ATTEND Internal Medicine Hematology & Oncology
DX: Z03.89 Encounter for observation for other suspected diseases and conditions ruled out (principal); C18.0 Malignant neoplasm of cecum; C78.7 Secondary malignant neoplasm of liver and intrahepatic bile duct; R91.8 Other nonspecific abnormal finding of lung field
CPT/HCPCS: 82565; 84520; 71260; 74177; 36415; Q9967